=== PATIENT | male | born 1965 | race Caucasian/White ===

== ENCOUNTER 2023-07-15 06:23 | Emergency (ER) | payer MEDICAID ==
[~2023-07-15] VITALS: Ht 177.8 cm; Wt 84.5 kg
[2023-07-15 06:32] VITALS: BP 168/106; PULSE 88; RESP 18; O2SAT 96
== END 2023-07-15 08:11 | disposition left against medical advice (07) ==
LOC: ER 06:23
DX: K08.89 Other specified disorders of teeth and supporting structures (principal); Z53.21 Procedure and treatment not carried out due to patient leaving prior to being seen by health care provider